=== PATIENT | female | born 1965 | race Caucasian/White ===

== ENCOUNTER → 2016-05-31 | Outpatient (CLI) | payer OTHER ==
--- NOTE | 2016-05-31 18:46 | DX ---
Lumbar Spine, Four Views Indication: Pain. Evaluate for instability. Technique: Upright AP and lateral views in the neutral, flexed, and extended position. Findings: The posterior fusion construct at L3-L4, consisting of dual posterior rods and bilateral t ranspedicular screws, remains well seated. No perihardware fracture or lucency. The L3 and L4 verte bral bodies are completely osseous fused. 2 mm of anterolisthesis of L4 on L5 in the neutral and ext ended position increases to 6 mm with flexion. 5 to 6 mm of retrolisthesis of L1 on L2 is unchanged with flexion/extension maneuvers. Severe degenerative disk disease at L1-L2, evidenced by complete disk height loss, endplate sclerosis , and exuberant osteophytes, has not significantly changed since three weeks prior. No compression fracture or bone lesion. Impression: 1. Minimal instability at the L4-L5 level. 2. Grade 1 spondylolisthesis at L1-L2, without evidence of instability. 3. Well-seated posterior fusion construct at L3-L4.
== END ==
LOC: FIMAGING 15:32
PROVIDERS: ATTEND Physical Medicine & Rehabilitation Pain Medicine
DX: M53.2X6 Spinal instabilities, lumbar region (principal); M43.16 Spondylolisthesis, lumbar region; Z98.1 Arthrodesis status

== ENCOUNTER → 2016-06-25 | Outpatient (CLI) | payer OTHER | LOC: FIMAGING 12:10 | PROVIDERS: ATTEND Neurological Surgery | DX: Z01.818 Encounter for other preprocedural examination (principal); M54.5 Low back pain ==

== ENCOUNTER → 2016-10-12 | Outpatient (CLI) | payer OTHER | LOC: FIMAGING 11:47 | PROVIDERS: ATTEND Physician Assistant Surgical | DX: Z09 Encounter for follow-up examination after completed treatment for conditions other than malignant neoplasm (principal); Z98.1 Arthrodesis status ==

== ENCOUNTER → 2017-01-17 | Outpatient (CLI) | payer OTHER | LOC: FIMAGING 11:20 | PROVIDERS: ATTEND Physician Assistant Surgical | DX: Z09 Encounter for follow-up examination after completed treatment for conditions other than malignant neoplasm (principal); Z98.1 Arthrodesis status; M43.16 Spondylolisthesis, lumbar region; M47.896 Other spondylosis, lumbar region ==

== ENCOUNTER → 2017-07-05 | Outpatient (CLI) | payer OTHER | LOC: FIMAGING 13:11 | PROVIDERS: ATTEND Physician Assistant Surgical | DX: Z09 Encounter for follow-up examination after completed treatment for conditions other than malignant neoplasm (principal); M51.36 Other intervertebral disc degeneration, lumbar region; Z98.1 Arthrodesis status ==

== ENCOUNTER → 2018-04-04 | Outpatient (CLI) | payer OTHER | LOC: FIMAGING 11:18 | PROVIDERS: ATTEND Physician Assistant Surgical | DX: Z98.1 Arthrodesis status (principal) ==

== ENCOUNTER 2018-05-10 15:19 | Emergency (ER) | payer OTHER ==
[2018-05-10 15:26] VITALS: BP 174/115
--- NOTE | 2018-05-10 15:50 | EDPHY ---
H & P Stated Complaint: oxy for years/wants to quit no meds for 5 days nausea - Personal History LMP (Females 10-55): Now Current Tetanus Diphtheria and Acellular Pertussis (TDAP): Yes - Medical/Surgical History Hx Asthma: No Hx Chronic Respiratory Disease: No Hx Diabetes: No Hx Cardiac Disease: No Hx Renal Disease: No Hx Cirrhosis: No Hx Alcoholism: No Hx HIV/AIDS: No Hx Splenectomy or Spleen Trauma: No Other PMH: back fusion chronic pain - Social History Smoking Status: Current some day smoker Time Seen by Provider: 05/10/18 15:28 HPI/ROS: CHIEF COMPLAINT: "I think I'm withdrawing" HISTORY OF PRESENT ILLNESS: 52-year-old female history of chronic back pain, opiate dependence, benzodiazepine dependence, followed by pain management physician in this area, recently return from a trip to [facility], ran out of her opiate 4 days ago, decides she would like to be sober from her chronic opiates. In the ER complaining of multiple complaints including, agitation, anxiety, nausea, vomiting, insomnia. She contacted her pain management physician is currently out of town therefore comes to the ER for evaluation. She continues to take her benzodiazepines as prescribed. She would like to remain sober from opiates. She denies suicidal homicidal ideation, denies hallucination, denies seizure, denies chest pain, dyspnea, abdominal pain, neurologic deficits. PRIMARY CARE PROVIDER: REVIEW OF SYSTEMS: 10 systems reviewed and negative with the exception of the elements mentioned in the history of present illness PAST MEDICAL & SURGICAL HISTORY: Chronic back pain. Opiate dependence. Benzodiazepine dependence. Anxiety. SOCIAL HISTORY: PHYSICAL EXAM (Prior to examination, patient consented to physical exam, hands were washed and my usual and customary physical exam procedures followed) 1) GENERAL: Well-developed, well-nourished, alert and oriented. Appears anxious. 2) HEAD: Normocephalic, atraumatic 3) HEENT: Pupils equal, round, reactive to light bilaterally. Sclera anicteric. Nasopharynx, oropharynx, clear, no lesions. Moist Mucous membranes. 4) NECK: Full range of motion, no meningeal signs. 5) LUNGS: Clear auscultation bilaterally, no wheezes, no rhonchi, no retractions. 6) HEART: Regular rate and rhythm, no murmur, no heave, no gallop. 7) ABDOMEN: No guarding, no rebound, no focal tenderness, negative McBurney's, negative Douglas's, negative Rovsing's, negative peritoneal sign, 8) MUSCULOSKELETAL: Moving all extremities, no focal areas of tenderness, no obvious trauma. No peripheral edema or discoloration. 9) BACK: No CVA tenderness, no midline vertebral tenderness, no fluctuance, no step-off, no obvious trauma, no visual or palpable abnormality. 10) SKIN: No rash, no petechiae. 11) Psychiatric: Patient is oriented X 3, there is no agitation. 12) NEURO: Awake, alert, and oriented to person, place and time. Answers questions appropriately. There were no obvious focal neurologic abnormalities. No cerebellar dysfunction. Normal steady gait. Upper and lower extremities bilaterally with strength 5 / 5, reflexes 2+. DIFFERENTIAL DIAGNOSIS: In no particular order including but not limited to acute opiate withdrawal, intractable nausea vomiting, chronic back pain ([place]) Constitutional: Initial Vital Signs Temperature (C) 36.9 C 05/10/18 15:24 Heart Rate 114 H 05/10/18 15:24 Respiratory Rate 18 05/10/18 15:24 Blood Pressure 174/115 H 05/10/18 15:24 O2 Sat (%) 95 05/10/18 15:24 O2 Delivery Mode Room Air Allergies/Adverse Reactions: No Known Allergies Allergy (Unverified 05/10/18 15:23) Home Medications: Medication Instructions Recorded Sergio 05/10/18 Ondansetron Odt [Zofran Odt] 4 mg PO Q4PRN PRN #10 tab 05/10/18 Xanax 05/10/18 clonIDINE [Catapres (*)] 0.1 mg PO Q6 PRN #8 tab 05/10/18 Medical Decision Making ED Course/Re-evaluation: 3:50 p.m.: Heart rate when I evaluated patient is in the 90s once she is calm laying on the bed. She currently appears anxious. I think her symptoms are more than likely related to acute opiate withdrawal. We discussed management. She would like to remain sober from opiates. She is already consuming p.r.n. Benzodiazepines as well as sleep paid. I have offered antiemetic as well as clonidine for opiate withdrawal. Discussed the importance of close monitoring of her blood pressure while she is on the clonidine. Today is Tuesday. Recommend she contact her pain management provider tomorrow. 50 point she develops chest pain, dyspnea, inability to tolerate oral intake or any other symptoms to return to the ER immediately for re-evaluation. Feels comfortable being discharged. All questions and concerns addressed by myself. Care of patient under supervision of secondary supervising physician Dr Norberto Montoya. ( [facility]) I did not see this patient while she was in the emergency department. However her care was discussed with the PA while the patient was in the department. I agree with treatment plan and management (Norberto Montoya S) - Data Points Medications Given: Discontinued Medications Clonidine (Catapres) 0.1 mg PO EDNOW ONE Stop: 05/10/18 15:58 Last Admin: 05/10/18 16:27 Dose: 0.1 mg Departure - Departure Disposition: Home, Routine, Self-Care Clinical Impression: Opiate withdrawal Condition: Good Instructions: Opioid Withdrawal (ED) Referrals: Talib Mcbride MD [Primary Care Provider] - 1-2 days without fail Prescriptions: clonIDINE [Catapres (*)] 0.1 mg PO Q6 PRN #8 tab PRN Reason: Anxiety Ondansetron Odt [Zofran Odt] 4 mg PO Q4PRN PRN #10 tab PRN Reason: Nausea
== END 2018-05-10 16:15 | disposition home or self-care (01) ==
DX: F11.23 Opioid dependence with withdrawal (principal)